=== PATIENT | female | born 1970 | race Caucasian/White ===

== ENCOUNTER → 2017-02-12 | Outpatient (CLI) | payer BC, SELFPAY | PROVIDERS: Visit Provider Family Medicine | DX: N64.4 Mastodynia (principal) | CPT/HCPCS: 77067; G0202 ==

== ENCOUNTER → 2017-03-01 14:27 | Outpatient (CLI) | payer BC, SELFPAY ==
--- NOTE | 2017-03-01 14:43 | MM_ITS ---
MM Dig SC mamm unilat LT CAD COMPARISON: 02/12/2017 INDICATION: Follow-up abnormal mammogram ORDERING PHYSICIAN: Kathy Sánchez MD PATIENT AGE: 46 years TECHNIQUE: Rolled cc views FINDINGS: Previous area of asymmetric density less apparent on the medial rolled cc view. This is to represent fibroglandular tissue not evident on the previously described additional images nor the orthogonal view IMPRESSION: Asymmetric density likely corresponds to asymmetric fibroglandular tissue BI-RADS Category: 3 Benign Finding Short Term Follow-up RECOMMENDED FOLLOW-UP: 6M - 6 MONTH FOLLOW-UP (A letter has been sent to the patient regarding results of the study.)
== END ==
PROVIDERS: PCP Family Medicine; Visit Provider Family Medicine
DX: R92.8 Other abnormal and inconclusive findings on diagnostic imaging of breast (principal)
CPT/HCPCS: 77067

== ENCOUNTER → 2020-05-23 16:07 | Outpatient (CLI) | payer BC, SELFPAY ==
[2020-05-23 17:09] LABS: Hemoglobin A1C 5.3 % (4.0-6.0)
== END ==
PROVIDERS: Visit Provider Nurse Practitioner
DX: R42 Dizziness and giddiness (principal); Z83.3 Family history of diabetes mellitus
CPT/HCPCS: 36415; 83036

== ENCOUNTER → 2020-06-01 08:36 | Outpatient (CLI) | payer BC, SELFPAY ==
--- NOTE | 2020-06-01 08:36 | MR_ITS ---
PROCEDURE: MR FOOT LT WO/W CON CLINICAL INDICATION: pain Bilateral plantar fascia pain COMPARISON: No exams were available for comparison TECHNIQUE: Routine multiplanar multi echo sequences are performed without and with gadolinium enhancement. FINDINGS: Bones: Nonspecific increased T2 signal involving the distal phalanx of the great toe. This had a similar appearance on the right side and may be artifactual in nature. There is no evidence of enhancement or soft tissue swelling. Ligaments: Unremarkable Tendons: Unremarkable Joints: Small amount fluid is present at the navicular cuneiform junction and between the mid and lateral cuneiform as well as the lateral cuneiform and cuboid. Small amount fluid also noted at the 1st 2nd 3rd and 4th metatarsophalangeal junction and between the head of the 1st metatarsal and sesamoids suggesting synovitis. Small amount fluid is also present at the talocalcaneal region posteriorly and at the tibial talar region anteriorly. Soft tissues: There is a mild amount of subcutaneous edema of the heel pad and superficial to the plantar fascia. No evidence of plantar fascia tear. IMPRESSION: 1. Synovitis suspected of the ankle and foot at the metatarsophalangeal junction, 1st metatarsal sesamoid region, and tarsal area as described above.. 2. Mild edema along the heel pad and superficial to the plantar fascia and may be seen with plantar fasciitis. No plantar fascia tear. 3. Nonspecific increased T2 signal of the distal phalanx of the great toe possibly artifactual in nature. Dictated by: Caesar Pa MD 06/05/2020 12:19 Caesar Pa MD in [place] 06/05/2020 12:19
--- NOTE | 2020-06-01 08:36 | MR_ITS ---
PROCEDURE: MR FOOT RT WO/W CON CLINICAL INDICATION: pain Pt c/o hx of bilateral plantar fasciitis x5yrs. Hx of multiple injections. No known trauma. Pt states both feet hurt, but if she had to state if one was worse than the other, her rt hurts more. COMPARISON: No exams were available for comparison TECHNIQUE: Routine multiplanar multi echo sequences are performed without and with gadolinium enhancement. FINDINGS: Bones: Increased T2 signal involves the distal phalanx of the great toe at the mid distal aspect. This does not appeared to show contrast enhancement. Has there been recent trauma to this area?. No fracture or dislocation. Ligaments: Unremarkable. Tendons: Slight increased T2 signal involves the peroneus longus at the distal calcaneal region with a small amount fluid in this area suggesting tendinitis. No tendon tears are identified. Joints: Minimal osteoarthritic changes involve the 1st metatarsophalangeal joint. Small amount fluid is present in the MTP joint of the 1st, 2nd, 3rd, 4th and 5th toes. Small amount fluid is also present between the distal aspect of the 1st metatarsal and sesamoid bones. Soft tissues: The plantar fascia appears intact. There is a small amount of edema both deep and superficial to the mid aspect of the plantar fascia as seen on the sagittal images as well as a small amount of edema along the heel pad. IMPRESSION: 1. Metatarsophalangeal synovitis digits 1 through 5 also with a small amount of fluid at the 1st metatarsal sesamoid region suggesting synovitis 2. No evidence of plantar fascia tear. Mild edema is present deep and superficial to the plantar fascia which may be seen with fasciitis. There is also mild edema of the heel pad suggesting underlying inflammatory changes. 3. Increased T2 signal of the distal phalanx of the great toe etiology indeterminate. This does not show contrast enhancement and could be related to bone marrow edema from contusion. Please correlate with clinical parameters Dictated by: Caesar Pa MD 06/05/2020 12:03 Caesar Pa MD in [place] 06/05/2020 12:03
== END ==
PROVIDERS: PCP Family Medicine; Visit Provider Podiatrist
DX: M72.2 Plantar fascial fibromatosis (principal); M79.671 Pain in right foot; M79.672 Pain in left foot
CPT/HCPCS: 73720; A9576

== ENCOUNTER → 2021-01-03 09:19 | Outpatient (POV) | payer BC, SELFPAY ==
[2021-01-03 09:47] VITALS: BP 116/73; PULSE 70; RESP 18; O2SAT 99; BMI 22.4
--- NOTE | 2021-01-05 15:02 | HMH.PMCON ---
Assessment and Plan (1) Degenerative joint disease of cervical spine Status: Chronic Category: Medical Code(s): M47.812 - Spondylosis without myelopathy or radiculopathy, cervical region (2) Cervical radiculopathy Status: Chronic Category: Medical Code(s): M54.12 - Radiculopathy, cervical region (3) Cervical spondylosis Status: Chronic Category: Medical Code(s): M47.812 - Spondylosis without myelopathy or radiculopathy, cervical region - Assessment and plan all Dx Assessment and Plan for all problems:: Patient does have imaging of her cervical spine. Per the MRI report patient does have cerebellar tonsillar ectopia, with incidental finding of partially empty sella, which could be result of idiopathic intracranial hypertension, consider correlation with funduscopic exam for papilledema . Patient also has facet arthropathy noted per her MRI report throughout her cervical spine. The MRI was discussed in detail with Dr. Prajapati. Dr. Prajapati would like to refer the patient to Dr. Buckley for a further work-up concerning the patient's worsening headaches and neck pain before proceeding with injective therapy. She does have a history of chiari malformation. We will see the patient back after her visit with Dr. Buckley. Patient has inquired about oral medication management. She has been advised we will not be able to prescribe her Percocet in the clinic. She can discuss this with her primary care provider. Patient has been instructed to contact the clinic with any concerns before the next appointment. Dr. Prajapati has reviewed this note and agrees with this plan of care. This note was dictated using voice recognition software and make contain errors or omissions. HPI - Data of Consult Patient: new to practice Consult date: 01/03/21 Requesting Physician: Winsome Alston APRN - Consult Narrative Reason for consult: Neck pain with frequent headaches History of present illness: Ms. Ochoa is a 50 year old female who presents today for consultation for chronic neck pain with frequent headaches. The patient was referred to us by Angelique Barrios PA-C. Patient reports that she has had many years of neck pain with radiation into her hand. She says that the pain is made worse with movement. Patient says her sister is a patient within our clinic, Charity Garcia. Patient says that she experiences similar symptoms as her sister with a history of chiari malformation. Patient reports to have been having headaches x2 years. She reports the neck pain to cause the headaches. She is also having pain to the sides of both ears. She says the pain does occasionally creep into bilateral shoulders. This has been ongoing to her shoulder since June. Patient has had an occipital nerve block in the past with little to no relief. She has occasional numbness in her cheeks as well. She also has occasional numbness and tingling in her hands. She says she is unable to lie flat in the bed without having significant pain. She does have to use a pillow rolled up for relief of her neck pain. She reports the headaches to generally be in the occipital region. Flexing head forward or backwards makes symptoms worse. She reports stiffness in the neck with limited range of motion as well. Patient has been treated with Percocet 10 tizanidine in the past. Patient did go back to her previous pain management provider for repeat injections of occipital nerve blocks though the first injections did not work. The insurance did deny the second round of injections. Patient is also prescribed meloxicam. CC: Winsome Alston APRN [facility] History I have reviewed the patient's past medical history: Yes Medical History: Reports:: Cancer, Supraventricular Tachycardia *Have you ever received a pneumonia vaccine?: No *Have you received a flu vaccine this season?: No Other Surgeries: Yes: , Hysterectomy-Total, Hysterectomy-Partial - *Social History Smoking Status: Never smoker Al
== END ==
PROVIDERS: Visit Provider Clinical Nurse Specialist Family Health
DX: M47.892 Other spondylosis, cervical region (principal); M54.12 Radiculopathy, cervical region
CPT/HCPCS: 99212; G0463

== ENCOUNTER → 2021-02-24 14:01 | Outpatient (CLI) | payer BC, SELFPAY ==
--- NOTE | 2021-02-24 14:01 | MR_ITS ---
PROCEDURE INFORMATION: Exam: MR Head Without Contrast Exam date and time: 02/24/2021 2:01 PM Age: 50 years old Clinical indication: Condition or disease; Other: Chiari i, headaches TECHNIQUE: Imaging protocol: MR of the head without contrast. COMPARISON: FINDINGS: Brain: Cerebellar tonsillar ectopia consistent with Chiari 1 malformation. No acute infarct identified on the diffusion-weighted imaging. No evidence of brain parenchymal edema or intracranial mass effect. No significant white matter disease for the patient's age. A few punctate foci of increased signal intensity in the frontal lobe subcortical white matter likely representing trace chronic small vessel ischemic change. Cerebral ventricles: No ventriculomegaly. Pituitary gland and sella: There is a partially empty sella turcica, usually an incidental finding. Bones/joints: The cervical spine is evaluated separately on a dedicated exam. Degenerative disc disease is noted at C3-C4. Paranasal sinuses: Normal as visualized. No acute sinusitis. Mastoid air cells: Normal as visualized. No mastoid effusion. Orbital cavity: Unremarkable. Soft tissues: Unremarkable. IMPRESSION: 1. No acute findings. 2. Cerebellar tonsillar ectopia consistent with Chiari 1 malformation.
--- NOTE | 2021-02-24 14:01 | MR_ITS ---
PROCEDURE INFORMATION: Exam: MR Cervical Spine Without Contrast Exam date and time: 02/24/2021 2:01 PM Age: 50 years old Clinical indication: Condition or disease; Other: Syrinx, chiari i TECHNIQUE: Imaging protocol: Multiplanar magnetic resonance images of the cervical spine without contrast. COMPARISON: No relevant prior studies available. FINDINGS: Vertebrae: Slight degenerative retrolisthesis of C5 on C6. No acute fracture seen. Spinal cord: Increased conspicuity of the central canal of the spinal cord seen from the level of lower C7 through T1-2 consistent with trace hydrosyringomyelia. Disc desiccation throughout. Disc height loss and spondylosis is moderate at C3-C4, C5-C6 and C6-C7. C2-C3: No stenoses. C3-C4: Posterior disc osteophyte complex, in particular central disc osteophyte measuring approximately 3-4 mm in AP dimension nearly abutting ventral cord. There is slight ventral cord flattening. No cord myelopathy. Central spinal canal stenosis is mild. Uncovertebral and facet arthropathy causing mild right neural foraminal stenosis. No significant left neural foraminal narrowing. C4-C5: Mild disc bulge does not contribute to central spinal canal stenosis. The neural foramina are patent. C5-C6: Slight retrolisthesis. Disc osteophyte complex nearly abuts ventral cervical cord. There is slight ventral cord flattening. No cord myelopathy. Uncovertebral and facet arthropathy, in particular left uncovertebral osteophyte probably causing [id number] left neural foraminal stenosis. No significant right neural foraminal narrowing. Some limitations assessing the neural foramina on the axial T2 weighted sequence due to motion artifact. C6-C7: Disc osteophyte complex does not contribute to significant central spinal canal stenosis. Uncovertebral and facet arthropathy causing [id number]-tmudpkyr right and mild left neural foraminal stenoses. C7-T1: Evlx-pc-[id number] facet arthropathy. No stenoses. Soft tissues: Unremarkable. Brain: Cerebellar tonsillar ectopia consistent with Chiari 1 malformation. Vertebral arteries: Expected flow voids in the vertebral arteries. IMPRESSION: 1. Trace hydrosyringomyelia of the cervicothoracic cord. 2. Degenerative changes with odyq-ga-vlproclo stenoses, as above.
== END ==
PROVIDERS: PCP Family Medicine; Visit Provider Specialist
DX: G43.709 Chronic migraine without aura, not intractable, without status migrainosus (principal); G93.5 Compression of brain; G95.0 Syringomyelia and syringobulbia
CPT/HCPCS: 70551; 72141; 76376

== ENCOUNTER → 2021-07-03 14:55 | Outpatient (CLI) | payer BC, SELFPAY ==
--- NOTE | 2021-07-03 15:05 | XR_ITS ---
FINAL REPORT CLINICAL HISTORY: pt. passed out last week hitting head c/o neck stiffness and back pain FINDINGS: CERVICAL SPINE COMPLETE WITH FLEXION AND EXTENSION 7 views were obtained. There is no acute fracture. Alignment is normal. There is straightening of the normal cervical curvature which could be due to positioning or muscle spasm. There are mild and moderate degenerative changes with osteophytes. There is no abnormal movement with flexion or extension. IMPRESSION: Mild and moderate degenerative changes. LUMBAR SPINE Three views were obtained. There is no acute fracture. There is dextroscoliosis. Alignment is normal. There are mild degenerative changes with osteophytes. IMPRESSION: Mild degenerative change with osteophytes. Reviewed, Interpreted and Dictated by Qamar Segura III, MD Transcribed by Grady Padron Authenticated by aQmar Segura III, MD on 07/03/2021 04:47:41 PM [facility]
== END ==
PROVIDERS: PCP Family Medicine; Visit Provider Specialist
DX: S06.0X9A Concussion with loss of consciousness of unspecified duration, initial encounter (principal); M54.2 Cervicalgia; T14.90XA Injury, unspecified, initial encounter; W19.XXXA Unspecified fall, initial encounter
CPT/HCPCS: 72084

== ENCOUNTER → 2021-07-10 13:40 | Outpatient (CLI) | payer BC, SELFPAY ==
--- NOTE | 2021-07-10 13:40 | CT_ITS ---
FINAL REPORT CLINICAL HISTORY: Head concussion, synocpe, fell and hit left side head. FINDINGS: Axial images of the head were obtained without contrast. Coronal reformatted images were also obtained.This study was performed with techniques to keep radiation doses as low as reasonably achievable (ALARA). Individualized dose reduction techniques using automated exposure control or adjustment of mA and/or kV according to the patient's size were employed. There is no evidence of intracranial hemorrhage or mass. The ventricular size is within normal limits. There is no evidence of shift of the midline structures. No abnormal extra axial fluid collection is identified. No skull abnormality is seen on the bone window images. IMPRESSION: No acute intracranial abnormality. Reviewed, Interpreted and Dictated by Qamar Segura III, MD Transcribed by Kathy Sandoval Authenticated by Qamar Segura III, MD on 07/10/2021 03:30:22 PM [facility]
== END ==
PROVIDERS: PCP Family Medicine; Visit Provider Specialist
DX: S06.0X9A Concussion with loss of consciousness of unspecified duration, initial encounter (principal)
CPT/HCPCS: 70450

== ENCOUNTER → 2021-07-26 08:35 | Outpatient (CLI) | payer BC, SELFPAY ==
[2021-07-26 09:36] LABS: Chloride 101 mmol/L (98-107); Potassium 4.4 mmoL/L (3.5-5.1); Sodium 139 mmol/L (136-145)
[2021-07-26 09:39] LABS: Alanine Aminotransferase 23 U/L (12-78); Albumin Level 5.1 g/dl (3.5-5.0); Albumin/Globulin Ratio 1.9 (1.1-1.8); Alkaline Phosphatase 72 U/L (38-126); Anion Gap 11.4 mEq/L (5-15); Aspartate Amino Transferase 28 U/L (14-36); Bilirubin,Total 0.8 mg/dl (0.2-1.3); Blood Urea Nitrogen 11 mg/dl (7-17); Carbon Dioxide 31 mmol/L (22.0-30.0); Estimated Glomerular Filt Rate 130 ml/min (>60); GFR (African American) 157 ML/MIN (>60); Globulin 2.7 g/dL (1.3-3.2); Total Protein,Serum 7.8 g/dl (6.3-8.2)
[2021-07-26 09:40] LABS: Calcium 10.1 mg/dl (8.4-10.2); Glucose 99 mg/dl (74-100)
== END ==
PROVIDERS: PCP Family Medicine; Visit Provider Specialist
DX: G43.709 Chronic migraine without aura, not intractable, without status migrainosus (principal)
CPT/HCPCS: 36415; 80053

== ENCOUNTER → 2021-09-08 10:29 | Outpatient (CLI) | payer BC, SELFPAY ==
[2021-09-08 11:36] LABS: Basophils # 0.1 K/mm3 (0-0.2); Basophils % 2.5 % (0.1-2.0); Eosinophils # 0.2 K/mm3 (0.0-0.4); Hematocrit 42.7 % (37.0-47.0); Hemoglobin 13.4 g/dL (12.2-16.2); Lymphocytes # 1.5 K/mm3 (0.7-4.5); Lymphocytes % 30.1 % (10-50); Mean Corpuscular HGB Conc 31.4 g/dL (31.8-35.4); Mean Corpuscular Hemoglobin 30.7 pg (27.0-31.2); Mean Corpuscular Volume 97.6 fl (81-99); Mean Platelet Volume 7.5 fl (7.4-10.4); Monocytes # 0.4 K/mm3 (0.1-1.0); Monocytes % 7.5 % (1.7-9.3); Neutrophils # 2.8 K/mm3 (1.8-7.8); Neutrophils % 56.9 % (37.0-80.0); Platelet Count 272 K/mm3 (142-424); Red Blood Count 4.37 M/mm3 (4.20-5.40); Red Cell Distribution Width 13.1 % (11.5-17.5); White Blood Count 4.9 K/mm3 (4.8-10.8)
[2021-09-08 13:02] LABS: Activated Partial Thrombo Time 31.4 seconds (22.8-30.6); INR 0.97 (0.9-1.1)
== END ==
PROVIDERS: PCP Family Medicine; Visit Provider Specialist
DX: M47.812 Spondylosis without myelopathy or radiculopathy, cervical region (principal); M54.12 Radiculopathy, cervical region; M65.9 Synovitis and tenosynovitis, unspecified; R42 Dizziness and giddiness
CPT/HCPCS: 36415; 85025; 85610; 85730

== ENCOUNTER → 2022-02-28 12:57 | Outpatient (POV) | payer BC, SELFPAY ==
[2022-02-28 13:31] VITALS: BP 135/93; PULSE 102; RESP 19; O2SAT 98; BMI 21.2
--- NOTE | 2022-02-28 16:49 | EXP.PAIN.OV ---
HPI Data of Consult Patient: new to practice Consult date: 02/28/22 Requesting Physician: Deidre Vega APRN Primary Care Provider: Kathy Sánchez MD Consult Narrative Reason for consult: Neck/upper back pain, headache History of present illness: Ms. Ochoa is a 51 year old female who presents today as a new patient. She is a referral from Dr. Buckley's office. Today the patient rates her pain a 7 out of 10. Patient states her pain is all in her neck and upper back with frequent headaches symptoms. Patient states that approximately a year and a half ago she was seen by our office for the same issues and we did send her for a consult for neurology. Patient states that she has been to Dr. Buckley who prescribed her a neuro suppressant medication and muscle relaxer. Patient states she has been recently to see Dr. Ortega in [place] who was recommending physical therapy and pain management before possibly doing a decompression surgery. Patient states she would like a noninvasive measure if possible. Patient states she previously did get injections in her neck and head from Dr. Vega's office in [place]. Patient states this did provide some improvement of her symptoms however it was supposed to be a series of 3 different injections however insurance would not cover the second and third shots. Patient denies any history of going to physical therapy for her neck related pain. Patient does state this is a constant throbbing sensation that is worse with increased activity or range of motion. Patient states she is unable to tolerate bending her neck due to the pain. Patient states she was on previous narcotics for her pain symptoms however she stopped taking them this fall when she got COVID and was put on antibiotics for 3 weeks. Patient does states she has some radicular symptoms into her hands as well as her head. Patient states she is unable to tolerate activities of daily living such as minimal cooking and cleaning such as mopping due to her worsening symptoms. Patient has been to other neurologist such as Dr. Alize Crockett in [place] with similar complaints. Patient has tried tizanidine and cyclobenzaprine in the past. Patient states she does continue to use ice for additional relief although temporary. Patient denies any cardiac or kidney issues. Patient states she feels like she has no quality of life and is interested in any additional improvements we can provide. Her Sincere is [phone]. Its been reviewed and appropriate. CC: Deidre Vega APRN [facility] Disclaimer: The information contained in this section may have been updated after the patient was seen, as this information can be updated by other users. Medical History (Updated 02/28/22 @ 17:04 by Deidre Vega APRN) Afib Anxiety Cancer Depression Migraine SVT (supraventricular tachycardia) Surgical History (Updated 02/28/22 @ 13:35 by Lucina Tang, KARELY) H/O total hysterectomy Hx of section Social History (Updated 02/28/22 @ 13:36 by Lucina Tang, KARELY) Smoking Status: Never smoker alcohol intake: never substance use type: denies use current occupational status: unemployed Travel in the last 8 weeks: None household members: spouse housing: house Review of Systems Review of Systems Review of systems:: pertinent systems reviewed and negative unless documented below Review of systems (narrative): Review of Systems: General: No recent weight changes, no fever, no sleep disturbances Respiratory: No cough, no shortness of air, no recurring pulmonary infections Cardiovascular/peripheral vascular: No chest pain, no palpitations, no edema, no shortness of breath Gastrointestinal: No new onset incontinence, normal bowel movements reported Genitourinary: No new onset incontinence Musculoskeletal: Neck pain, headache Psychiatric: [Normal mood/affect] Neurological: [Denies weakness in extremities], [denies balance issues] Meds Home Medic
== END | disposition home or self-care (01) ==
PROVIDERS: PCP Family Medicine; Visit Provider Nurse Practitioner Family
DX: M50.123 Cervical disc disorder at C6-C7 level with radiculopathy (principal); M47.22 Other spondylosis with radiculopathy, cervical region; G89.4 Chronic pain syndrome; G93.5 Compression of brain; R51.9 Headache, unspecified
CPT/HCPCS: 99202; G0463

== ENCOUNTER 2022-03-06 11:31 | Day surgery (SDC) | payer BC, SELFPAY ==
[2022-03-06 11:43] VITALS: BP 147/88; PULSE 93; RESP 18; TEMP 36.8; O2SAT 100; BMI 21.2
[2022-03-06 11:44] VITALS: BP 142/76; PULSE 94; RESP 20; O2SAT 97
[2022-03-06 11:48] VITALS: BP 142/76; PULSE 94; RESP 20; O2SAT 97
[2022-03-06 12:00] VITALS: BP 147/93; PULSE 80; RESP 18; O2SAT 95
--- NOTE | 2022-03-06 12:00 | P.PCN_ITS ---
Procedure Date: 03/06/22 Time: 11:50 Anesthesiologist:: Jus Regan CRNA Complications:: None Pre-procedure Diagnosis:: Degenerative disc disease multilevel cervical spine. Cervical radiculopathy. Post-procedure Diagnosis:: Same. Indications for Procedure:: Very pleasant 51-year-old female comes our clinic today for cervical epidural steroid injection. Patient has posterior cervical neck pain as well as bilateral arm radicular symptoms at times. She rates her pain 7/10. Procedure Details:: Procedure:Cervical epidural steroid injection Informed consent was obtained and the risks and benefits of the procedure were explained to the patient. The patient was taken to the procedure room and noninvasive monitors placed, including noninvasive blood pressure cuff and pulse oximeter. The neck was prepped using Chloraprep as a cleansing solution. The C7- T1 interspace was viewed using fluroscopy. The skin and subcutaneous tissues were anesthetized using lidocaine 1.5% and a 25-gauge needle. After this an 18- gauge Touhy epidural needle was placed into the C7-T1 interspace under fluroscopy guidance and advanced using loss of resistance to air until the epidural space was encountered. After confirmation of needle placement in the e pidural space using contrast dye, a solution containing normal saline, 2 mL and Depo-Medrol 80 mg was incrementally injected into the cervical epidural space.~ The patient tolerated the procedure well with no complications. The patient was observed in the Pain Clinic and then discharged home neurologically intact. Plan and Disposition:: Patient was discharged without incident.
== END 2022-03-06 12:00 | disposition home or self-care (01) ==
PROVIDERS: PCP Family Medicine; Visit Provider Nurse Anesthetist, Certified Registered
DX: M50.13 Cervical disc disorder with radiculopathy, cervicothoracic region (principal)
CPT/HCPCS: 62321; J1040; Q9966

== ENCOUNTER → 2022-04-17 10:32 | Outpatient (POV) | payer BC, SELFPAY ==
[2022-04-17 10:46] VITALS: BP 143/78; PULSE 74; RESP 20; TEMP 37.1; O2SAT 98; BMI 21.6
--- NOTE | 2022-04-17 11:18 | A.OFFVIS_ITS ---
[facility] Pain Management SOAP Note Subjective:: This patient is a pleasant 51-year-old female that comes to clinic today for follow-up visit after having cervical epidural steroid injection. Patient describes minimal improvement terms of her cervical neck pain as well as bilateral shoulder and arm radicular symptoms. Patient's cervical MRI shows multilevel degenerative disc. Retrolisthesis C5-6, disc osteophyte complex nearly abuts the ventral cervical cord. Patient describes cervical neck pain as constant, dull, aching. Also bilateral arm radicular symptoms at times. She rates her pain 7/10. Objective:: Patient is awake alert [employer] x3. In no acute distress. Flexion-extension cervical spine guarded secondary to pain. Deep tendon reflexes upper and lower extremities normal. Motor strength upper and lower extremities normal. There is no gross sensory deficit. Gait is normal. Assessment:: Degenerative disc disease cervical spine multilevels. Cervical radiculopathy. Cervical disc bulge. Plan:: I recommend the patient have evaluation with spine surgery. I will set her up for consultation with Dr. Mike?Anika. [facility] Disclaimer: The information contained in this section may have been updated after the patient was seen, as this information can be updated by other users. Medical History Afib Anxiety Cancer Depression Migraine SVT (supraventricular tachycardia) Surgical History H/O total hysterectomy Hx of section Family History (Updated 03/06/22 @ 11:45 by Alize Rose RN) Other No significant family history Social History Smoking Status: Never smoker alcohol intake: never substance use type: denies use current occupational status: other Travel in the last 8 weeks: None household members: spouse housing: house
== END ==
PROVIDERS: PCP Family Medicine; Visit Provider Nurse Anesthetist, Certified Registered
DX: M50.10 Cervical disc disorder with radiculopathy, unspecified cervical region (principal)
CPT/HCPCS: 99212; G0463

== ENCOUNTER → 2022-07-27 11:55 | Outpatient (CLI) | payer BC, SELFPAY ==
--- NOTE | 2022-07-27 12:00 | XR_ITS ---
FINAL REPORT CLINICAL HISTORY: lt foot pain COMPARISON: None FINDINGS: LEFT FOOT Three views of the left foot demonstrate no acute fracture or dislocation. The visualized joint spaces are normally aligned. The soft tissues are unremarkable. IMPRESSION: No acute bony abnormality. Reviewed, Interpreted and Dictated by Neto Chávez MD Transcribed by Nadiya Smith Authenticated and [facility]
--- NOTE | 2022-07-27 12:00 | XR_ITS ---
FINAL REPORT CLINICAL HISTORY: rt foot pain COMPARISON: None FINDINGS: RIGHT FOOT 3 views of the right foot were obtained. There is no acute fracture or dislocation. Visualized joint spaces are normally aligned. Soft tissues are unremarkable. IMPRESSION: No acute bony abnormality. Reviewed, Interpreted and Dictated by Neto Chávez MD Transcribed by Nadiya Smith Authenticated and [facility]
== END ==
PROVIDERS: PCP Family Medicine; Visit Provider Orthopaedic Surgery
DX: M79.671 Pain in right foot (principal); M79.672 Pain in left foot; M72.2 Plantar fascial fibromatosis
CPT/HCPCS: 73630

== ENCOUNTER → 2022-08-29 15:13 | Outpatient (CLI) | payer BC, SELFPAY ==
--- NOTE | 2022-08-29 15:14 | MR_ITS ---
PROCEDURE INFORMATION: Exam: MR Left Lower Extremity Joint Without Contrast; Ankle Exam date and time: 08/29/2022 4:02 PM Age: 51 years old Clinical indication: Pain; Ankle; Bilateral; Additional info: Lt ankle pain. X 8 years. TECHNIQUE: Imaging protocol: Magnetic resonance imaging of the left lower extremity without contrast. Exam focused on the ankle. COMPARISON: MR FOOT LT WO/W CON 06/01/2020 9:04 AM FINDINGS: Bones/joints: Tibiotalar and subtalar joint effusions are identified. Additional effusions are noted involving the midfoot. Fluid is seen within the spring ligament recess. No visualized acute marrow edema. No dislocation ankle. Evaluation of the foot is limited. First MTP joint effusion. Small amount of fluid or effusion also identified dorsal to the 2nd through 4th MTP joints. A few tiny hypodense nonspecific sclerotic lesions are identified within the navicular bone. LIGAMENTS: Distal tibiofibular syndesmosis: No visualized tear. Anterior talofibular ligament: Fluid surrounds the anterior talofibular ligament. Ligament sprain cannot be excluded. Posterior talofibular ligament: Heterogeneous signal intensity of the posterior talofibular ligament, without full-thickness tear. Calcaneofibular ligament: Evaluation of the calcaneofibular ligament is technically limited. Deltoid ligament complex: Increased signal intensity is identified involving the deltoid ligament. Ligament sprain or partial tear is considered, although this is a chronic finding compared to the previous MRI. TENDONS: Flexor tendons of foot: Unremarkable as visualized. Tibialis posterior tendon: See Peroneal tendons finding. Peroneal tendons: Minimal tenosynovitis of the peroneal tendons. Minimal tenosynovitis of the posterior tibialis tendon. Extensor tendons of foot: Unremarkable as visualized. Tibialis anterior tendon: Unremarkable as visualized. Achilles tendon: Unremarkable as visualized. Tarsal canal (Sinus tarsi): Mild edema fluid within the sinus tarsi. Soft tissues: Heel pad edema is identified. Minimal fluid within the retrocalcaneal bursa. Plantar fascia: Thickening and heterogeneous signal intensity identified of the plantar fascia, with mild adjacent edema. Differential considerations include plantar fasciitis and plantar fibromatosis. There is a progression of findings involving the plantar fascia compared to the previous MRI. IMPRESSION: 1. Thickening and heterogeneous signal intensity identified of the plantar fascia, with mild adjacent edema. Differential considerations include plantar fasciitis and plantar fibromatosis. There is a progression of findings involving the plantar fascia compared to the previous MRI. 2. Joint effusions. 3. Heel pad edema. 4. Minimal tenosynovitis of the peroneal tendons. Minimal tenosynovitis of the posterior tibialis tendon. 5. Increased signal intensity is identified involving the deltoid ligament. Ligament sprain or partial tear is considered, although this is a chronic finding compared to the previous MRI. 6. Additional findings described above.
== END ==
PROVIDERS: PCP Family Medicine; Visit Provider Orthopaedic Surgery
DX: M25.572 Pain in left ankle and joints of left foot (principal); M72.2 Plantar fascial fibromatosis
CPT/HCPCS: 73721

== ENCOUNTER → 2022-09-26 08:40 | Outpatient (POV) | payer BC, SELFPAY ==
--- NOTE | 2022-09-26 08:59 | EXP.PAIN.SOA ---
[facility] Pain Management SOAP Note Subjective:: Patient is a pleasant 52-year-old female who presents today for follow-up. 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 Today she rates her pain an 8 out of 10. Patient denies any new trauma or injury. Patient states she continues to have debilitating pain in her neck with radiating symptoms and headaches. She states the pain makes it difficult for bending, twisting or lifting. Patient feels like she does not have a life due to her pain. Patient states that she is unable to do activities of living and has no quality. Patient denies any change to location or type of pain she experiences. Patient has tried 1 cervical epidural that did not provide significant relief from our office. She was sent to [facility] who did do a occipital nerve block however she states she did not really have improvement with it. Patient states that they were recommending a series of 3 however her insurance denied her second injection. She was then sent to [facility] but was unhappy regarding the care and went on to Dr. Ortega's office. She states that the nurse practitioner mentioned a decompression surgery however she was not interested in this. She states he did not see any immediate issues that required surgical intervention. Patient does see Dr. Buckley who has her on a neuro suppressant medication. She is interested in any additional help we may be able to provide. Patient is currently managed with tizanidine 4 mg 3 times a day. She states that she does typically take a tab and a half in the morning and a tab and a half at night and it does help some. Patient does state that she is scheduled for upcoming foot surgery with Dr. Neves. Patient has tried [id number] medications such as Tylenol and ibuprofen along with heat and ice and topicals. She was prescribed compounding cream from our office in the past however she does not remember if it was ever gotten. She states that she has also tried meloxicam in the past with no additional relief. Her Sincere is [id number]. Its been reviewed and appropriate. Review of Systems: General: No recent weight changes, no fever, no sleep disturbances Respiratory: No cough, no shortness of air, no recurring pulmonary infections Cardiovascular/peripheral vascular: No chest pain, no palpitations, no edema, no shortness of breath Gastrointestinal: No new onset incontinence, normal bowel movements reported Genitourinary: No new onset incontinence Musculoskeletal: Neck pain, arm pain, headaches Psychiatric: [Normal mood/affect] Neurological: [Denies weakness in extremities], [denies balance issues] Objective:: Physical Exam: General: Alert and oriented x3, no acute distress, pleasant and cooperative Lungs: Respirations even and unlabored, symmetrical chest expansion Eyes: PERRL Musculoskeletal: Flexion and extension of cervical [spine] somewhat guarded secondary to pain, [antalgic gait noted] positive Kemps test Neurological: Speech clear, no gross sensory deficit [facility] 04/26/2022 MRI cervical spine without Findings: Alignment is normal. Vertebral body height is preserved. Cerebellar tonsils are low-lying. There is mild prominence to the central canal to the spinal cord at C7-T1. Very small syrinx not excluded. Bone marrow signal intensity is normal. Paraspinal soft tissues are within normal limits. C2-C3: There is no focal disc herniation, central stenosis or neuroforaminal narrowing. C3-4: Annular disc bulge with degenerative endplate changes and facet osteoarthropathy. Mild central canal stenosis. No foraminal narrowing. C4-C5: There is no focal disc herniation central canal stenosis or neural foraminal narrowing. C5-C6: Annular disc bulge with degenerative endplate changes and facet osteoarthropathy. Mild
[2022-09-26 09:56] VITALS: BP 129/88; PULSE 99; RESP 18; O2SAT 100; BMI 21.4
== END | disposition home or self-care (01) ==
PROVIDERS: Visit Provider Nurse Practitioner Family
DX: M50.10 Cervical disc disorder with radiculopathy, unspecified cervical region (principal); M48.02 Spinal stenosis, cervical region; M47.22 Other spondylosis with radiculopathy, cervical region
CPT/HCPCS: 99212; G0463

== ENCOUNTER → 2022-10-08 09:04 | Outpatient (CLI) | payer BC, SELFPAY ==
--- NOTE | 2022-10-08 09:14 | ECG_ITS ---
APPROVED REPORT Exam: Resting ECG HR:80 bpm ECG Measurements Heart Rate 80 AXES WI 153 P 76 QRSd 100 QRS 100 QT 348 T 56 QTc 383 Conclusion SINUS RHYTHM BORDERLINE RIGHT AXIS DEVIATION [QRS AXIS > 90] INCOMPLETE RIGHT BUNDLE BRANCH BLOCK [90+ ms QRS DURATION, TERMINAL R IN V1/V2, 40+ ms S IN I/aVL/V4/V5/V6] BORDERLINE ECG UNCONFIRMED REPORT Electronically signed by : Farooq Patricia MD 10/08/2022 13:57:53
--- NOTE | 2022-10-08 09:34 | XR_ITS ---
FINAL REPORT CLINICAL HISTORY: cough, pre op sx on left foot FINDINGS: 2 views of the chest were obtained . The heart is normal in size. Patient is status post median sternotomy. The mediastinum is within normal limits. Left base opacity may represent atelectasis or pneumonia. There is no pneumothorax. Osseous structures demonstrate postoperative changes of the left shoulder. IMPRESSION: Left base opacity which may represent atelectasis or pneumonia. Reviewed, Interpreted and Dictated by Qamar Segura III, MD Transcribed by Toma Garcia Authenticated and [facility]
[2022-10-08 10:01] LABS: Basophils # 0.1 K/mm3 (0-0.2); Basophils % 1.1 % (0.1-2.0); Eosinophils # 0.2 K/mm3 (0.0-0.4); Eosinophils % 3.2 % (0.1-12.0); Hematocrit 44.6 % (37.0-47.0); Hemoglobin 14.4 g/dL (12.2-16.2); Lymphocytes # 1.9 K/mm3 (0.7-4.5); Lymphocytes % 37.9 % (10-50); Mean Corpuscular HGB Conc 32.3 g/dL (31.8-35.4); Mean Corpuscular Hemoglobin 29.2 pg (27.0-31.2); Mean Corpuscular Volume 90.6 fl (81-99); Mean Platelet Volume 7.8 fl (7.4-10.4); Monocytes # 0.3 K/mm3 (0.1-1.0); Monocytes % 6.4 % (1.7-9.3); Neutrophils # 2.6 K/mm3 (1.8-7.8); Neutrophils % 51.4 % (37.0-80.0); Platelet Count 256 K/mm3 (142-424); Red Blood Count 4.92 M/mm3 (4.20-5.40); Red Cell Distribution Width 12.9 % (11.5-17.5)
[2022-10-08 10:33] LABS: Alanine Aminotransferase 19 U/L (12-78); Albumin/Globulin Ratio 1.6 (1.1-1.8); Alkaline Phosphatase 99 U/L (38-126); Anion Gap 17.4 mEq/L (5-15); Aspartate Amino Transferase 28 U/L (14-36); Bilirubin,Total 0.4 mg/dl (0.2-1.3); Blood Urea Nitrogen 14 mg/dl (7-17); Carbon Dioxide 27 mmol/L (22.0-30.0); Chloride 103 mmol/L (98-107); Estimated Glomerular Filt Rate 104 ml/min (>60); GFR (African American) 126 ML/MIN (>60); Globulin 3.2 g/dL (1.3-3.2); Glucose 91 mg/dl (74-100); Potassium 4.4 mmoL/L (3.5-5.1); Sodium 143 mmol/L (136-145); Total Protein,Serum 8.2 g/dl (6.3-8.2)
== END ==
PROVIDERS: PCP Family Medicine; Visit Provider Orthopaedic Surgery
DX: Z01.818 Encounter for other preprocedural examination (principal); M72.2 Plantar fascial fibromatosis
CPT/HCPCS: 36415; 71046; 80053; 85025; 93005

== ENCOUNTER 2022-10-12 06:02 | Day surgery (SDC) | payer BC, SELFPAY ==
[2022-10-09 08:29] VITALS: BMI 23.0
[2022-10-12] VITALS (12 sets, daily range): BP systolic 110–138; BP diastolic 72–91; PULSE 81–108; RESP 14–20; TEMP 36.3–43; O2SAT 97–100
--- NOTE | 2022-10-12 06:53 | P.PNANES_ITS ---
[facility] Disclaimer: The information contained in this section may have been updated after the patient was seen, as this information can be updated by other users. Medical History Afib Anxiety Cancer Depression Migraine SVT (supraventricular tachycardia) Surgical History H/O total hysterectomy History of appendectomy History of breast augmentation History of endometrial ablation Hx of section Family History Other Family history of Alzheimer's disease Family history of diabetes mellitus type II Social History Smoking Status: Never smoker alcohol intake: never substance use type: denies use current occupational status: other Travel in the last 8 weeks: None household members: spouse housing: house [facility] Anesthesia Checklist Patient Identification Patient Identification: Arm Band and Family Structural Data Admitted From: Home Planned Operative Procedure/s: Left open partial plantar facieotomy. Verified Documents: Surgical Consent NPO Status Verified Time NPO: 00:00 Additional verifications Patient : No Anesthesia Reactions: No Hx Blood Transfusions: No Blood Transfusion Reaction: No Cephalosporin Allergy: No Previous Colonoscopy: No Airway Assessment Mallampati Score:: Class II C-Spine Mobility Assessed: Yes TMJ Mobility Assessed: Yes Dentition: Good Dentition Neurological Assessment Level of Consciousness: Awake, Alert, Appropriate and Follows Commands Hx Seizures: No Numbness or tingling in extremities: No Anesthesia Plan Anesthesia Risk discussed: Yes ASA Class: II Anesthesia Type: General w/block Preoperative Comments Pre-Operative Comments: History of cardiac ablation for V-Tach, with no problems since ablation.
--- NOTE | 2022-10-12 08:40 | P.PNANES_ITS ---
[facility] Anesthesia Record Part I Anesthesia Record I Intake, IV Amount: 900 Hydration: Adequate Estimated blood loss (mL): 0 Urine output (mL): 0 Blood Products used (#): none Blood Pressure: 125/73 SaO2: 98 Pulse Rate: 108 Airway Patency: Patent Respiratory Rate: 20 Temperature: 97.5 F Patient is:: Drowsy and Stable
--- NOTE | 2022-10-12 08:54 | EXP.OP.NOTE ---
Date of procedure: 10/12/22 Pre-op Diagnosis:: left plantar fasciitis Post-op Diagnosis:: same Procedure performed:: 24097: Left open partial plantar fasciectomy Surgeon:: Golden Neves JR, MD Anesthesia: MAC and regional Estimated blood loss (mL): 5 Clinical Note:: 52-year-old female with 7 to 8-year history of left plantar heel pain. MRI was consistent with Planter fasciitis. She had undergone extensive conservative measures including injections, therapy, immobilization. She was interested in more durable intervention. After discussion of risk, benefits, alternatives, she wished to proceed with left open partial plantar fasciectomy. We discussed the risk and benefits of surgery. Risks included but were not limited to pain, bleeding, infection, damage to adjacent structures, need for further surgery, wound healing complications, loss of limb, . Patient expressed verbal consent and written consent was obtained for the above procedure. Operative findings:: Plantar fascial specimen appeared thickened Operative note:: Patient was identified in preoperative holding. Operative site was marked in indelible ink. History, physical, consent were reviewed and updated. Patient was surrendered to the anesthesia team, taken to the operative suite, placed supine on a well-padded operative table. Ipsilateral hip bump was placed as was a nonsterile thigh tourniquet. Anesthesia was induced. The operative extremity was prepped and draped in the usual sterile fashion. The operative team donned sterile gowns and gloves and a timeout was called. All in attendance agreed regarding the patient's identity, procedure, operative site. Weight-based dose of antibiotics was given prior to incision. I made a longitudinal incision approximately 2 to 3 cm longitudinally overlying the plantar fascial origin, dissected through skin and subcutaneous tissue, incised the superficial fascia over the abductor houses. I followed this distally, identified the confluence at the plantar fascia. I freed up the plantar fascia dorsally and plantarly, incised an approximately 1.5 x 1.5 cm specimen from the medial band, sent this for pathology. I copiously irrigated the wound and closed in anatomic layers. Sterile dressings applied followed by short leg splint. Counts were correct x2. There were no apparent complications. I was present and scrubbed for the entire case. Tourniquet time (min): 15 Condition: stable Disposition: PACU Specimens:: Plantar fascia x1 Complications:: None apparent
--- NOTE | 2022-10-12 12:03 | EXP.ANES.II ---
[facility] Anesthesia Record Part II Anesthesia Record Part II Discharge Time: 09:08 Destination: Surgical Day Care (OP Surgery) PACU nurse assessment reviewed?: Yes Patient Condition:: Good Anesthesia Complications:: None Swallowing reflex intact?: Yes Airway Patency: Patent Cyanosis?: No Blood Pressure: 113/72 SaO2: 98 Respiratory Rate: 14 Pulse Rate: 96 Temperature: 97.4 F Mental Status: Alert & Oriented Pain level:: 0 Nausea and/or vomitting:: None Intake, IV Amount: 0 Hydration: Adequate
== END 2022-10-12 10:12 | disposition home or self-care (01) ==
PROVIDERS: PCP Family Medicine; Visit Provider Orthopaedic Surgery
PROC: (CPT 28060; principal; 2022-10-12 07:30)
DX: M72.2 Plantar fascial fibromatosis (principal)
CPT/HCPCS: 28060; 96374; J2405

== ENCOUNTER 2024-07-06 11:27 | Outpatient (CLI) | payer BC, SELFPAY ==
--- OUTSIDE RECORDS SUMMARY | 2024-07-06 11:29 | XMS_ITS | Data Portability ---
Author Organization [facility] [place] & DAVIDA Philip ADMIN Address [address] [place] [address] Care Team Providers Care Chicken Vaccinator Name Role Phone MILADY VERAS Primary Care Provider [phone] Assessment Encounter Date Assessment Date Assessment LastModified by Organization Details LastModified Time 01/13/2024 01/13/2024 Ms. Ochoa was referred by Dr. Veras for management of chronic neck and low back pain. The patient was diagnosed with Chiari malformation and mentions that her sister recently due to the same condition. The patient has diabetes, managed with oral medications. She denies history of infection or anti-coagulant use. wilbur Not available 01/14/2024 08:35:22 Plan of Treatment Reminders Order Date Submit Date Provider Last Modified By Organization Details Last Modified Time Details Appointments None recorded. Lab urinalysis, dipstick 2023 024 [facility], [address], [place], [address], Ph [phone] 4 08:50:37 Referral None recorded. Procedures chemodenerv ation of muscle(s); muscle(s) innervated by facial, trigeminal, cervical spinal and accessory nerves, bilateral (PROC) - 46783, Botox for migraines - 155 units 2023 025 [email or web address] Ethan Parson MD, [address], [address], [place], [address], 5 13:59:15 injection, trigger point (PROC) - 30970, 34271, TPI bilateral cervico-occ ipital region 2023 025 [email or web address] MD, [address] , [facility] [address], [place], [address], 5 15:53:04 nerve conduction study/EMG, lower extremity (PROC) 2022 023 [facility] Not available 3 13:00:36 Surgeries None recorded. Imaging None recorded. Medication Orders Bactrim DS 800 mg-160 mg tablet 2023 024 [facility] - [facility], [address] [place] [address], [place], [address], 4 08:50:41 Pyridium 200 mg tablet 2023 024 [facility], [address] [place] [address], [place], [address], 4 08:50:43 Patient TargetsNo targets recorded. Patient Instructions Encounter Date Encounter Id Patient Instructions Last Modified By Organization Details Last Modified Time 01/13/2024 [id number] I have discussed in great detail our potential treatment options which would include a rehabilitative approach to care. This program would include medication management, Physical Therapy, consideration for interventional procedures as appropriate, and lifestyle modification (diet, weight loss, exercise, smoking/tobacco cessation, holistic approach including meditation and yoga). The patient understands and agrees prior to proceeding with this plan. _ __ __ __ __ __ __ __ __ __ __ __ __ __ __ __ __ __ __ __ __ __ __ __ __ __ __ __ _ RECORDS REVIEW: As per clinic policy, we will have the patient sign a release to obtain previous imaging and clinical notes. - PROCEDURE: I counseled the patient extensively and informed of the risks of the procedure, including the risk of paralysis, nerve damage, respiratory arrest, arrhythmias, stroke, weakness, and infection, which although very low, could result in or disability. The patient acknowledged to me that they understand and accept these risks. RN EDUCATION Extensive coordination of care provided by RN to educate patient on upcoming procedure and to coordinate obtaining extensive incoming medical records. _ __ __ __ __ __ __ __ __ __ __ __ __ __ __ __ __ __ __ __ __ __ __ __ __ __ __ __ _ PSYCH: Pain affecting Neuro-psych behavior was discussed. Discussed about pain psychological counseling as a part of the multimodal approach to pain treatment. _ __ __ __ __ __ __ __ __ __ __ __ __ __ __ __ __ __ __ __ __ __ __ __ __ __ __ __ _ REHABILITATION: Discussed with the patient the importance of diet, daily physical activity and PT. Discussed with the patient the need to be scheduled for physical therapy since physical therapy will prolong the benefits of the procedure and interventions. _ __ __ __ __ __ __ __ __ __ __ __ __ __ __ __ __ __ __ __ __ __ __ __ __ __ __ __ _ LATA: [id number] I have reviewed patient's LATA report prior to prescribing Schedule II, III, and IV medications that require review by law. wilbur Not available 01/14/2024 08:41:03 Reason for Referral None Reported. Results Created Date Observation Date Name Description Value Unit Range Abnormal Flag Note LastModifiedBy Organization Detail LastModifiedTime 08/12/19 24 08/12/2023 urina lysis , dipst ick Leukocytes (reference range) negati ve Not Available [facility] [address], [place], [address], Ph [phone] 08/12/2023 08:31:00 08/12/19 24 08/12/2023 urina lysis , dipst ick Nitrite (reference range:) negati ve Not Available [facility] [address] [facility] [address], [place], [address], Ph [phone] 08/12/2023 08:31:00 08/12/19 24 08/12/2023 urina lysis , dipst ick Urobilinogen (reference range) 0.[address] [facility] [address] [facility] [address], [place], [address], Ph [phone] 08/12/2023 08:31:00 08/12/19 24 08/12/2023 urina lysis , dipst ick Protein (reference range) negati ve Not Available [facility] [address] [facility] [address], [place], [address], Ph [phone] 08/12/2023 08:31:00 08/12/19 24 08/12/2023 urina lysis , dipst ick pH (reference range 5-8.5) 6.0 Not Available [facility] [address] [facility] [address], [place], [address], Ph [phone] 08/12/2023 08:31:00 08/12/19 24 08/12/2023 urina lysis , dipst ick Blood (reference range:) negati ve Not Available [facility] [address] [facility] [address], [place], [address], Ph [phone] 08/12/2023 08:31:00 08/12/19 24 08/12/2023 urina lysis , dipst ick Specific [place] (reference range) 1.[address] [facility] [address] [facility] [address], [place], [address], Ph [phone] 08/12/2023 08:31:00 08/12/19 24 08/12/2023 urina lysis , dipst ick Ketone (reference range) negati ve Not Available [facility] [address] [facility] [address], [place], [address], Ph [phone] 08/12/2023 08:31:00 08/12/19 24 08/12/2023 urina lysis , dipst ick Bilirubin (reference range) negati ve Not Available [facility] [address] [facility] [address], [place], [address], Ph [phone] 08/12/2023 08:31:00 08/12/19 24 08/12/2023 urina lysis , dipst ick Glucose (reference range) negati ve Not Available [facility] [address] [facility] [address], [place], [address], Ph [phone] 08/12/2023 08:31:00 08/12/19 24 08/12/2023 urina lysis , dipst ick Color (reference range: yellow-brown ) Pale Yellow Not Available [facility] [address] [facility] [address], [place], [address], Ph [phone] 08/12/2023 08:31:00 Result Notes None recorded. Problems Name Problem SNOMED Code Status Onset Date Resolution Date Notes Provider Name and Address Organization Details Recorded Time Chiari malformati on 267628240 Active 2023 Mary Alice Mack null, [place] - [facility] - [place] & [place] 4 10:20:08 Cervico-oc cipital neuralgia 33762522 Active 2023 Mary Alice Mack null, [place] - [facility] [place] 4 10:20:13 Cervical spondylosi s 255689392 Active 2023 Mary Alice Mack null, [place] - [facility] [place] 4 10:20:40 Myofascial pain 133699032 Active 2023 Mary Alice Mack null, [place] - [facility] [place] 4 10:22:29 Chronic migraine without aura 2385668650535 05 Active 2023 KATHARINA Bartlett [facility] & [place] 4 08:26:54 Low back pain 943541470 Active 2023 Mary Alice weeks, KATHARINA Jo [facility] & [place] 4 08:27:24 Paresthesi a of lower extremity 501974003 Active 2022 Alize Crockett DO [address], [place], [address] , [place]ATHARINA - TERESANT [facility] & [place] 3 11:40:38 Problem Notes None recorded. Procedures Surgical History Date Name Laterality Status Provider Name and Address Organization Details Recorded Time 5 Botox Migraine completed Mary Alice HIGUERA [facility] & [place] 03/20/2024 14:00:53 4 Injection Only completed Mary Alice Jo [facility] & [place] 01/31/2024 12:19:11 3 EMG/ Nerve Conduction Study completed DO [address], [place], [address], KATHARINA - TERESANT [facility] & [place] 08/16/2022 11:31:32 Imaging Results None recorded. Procedure Notes None recorded. Medical Equipment None Reported. Allergies No known drug allergies Medications Name Sig Start Date Stop Date Status Note LastModified by Organization Details LastModified Time cyclobenzapr ine 10 mg tablet TAKE 1 TABLET BY MOUTH THREE TIMES DAILY NEEDED active Not Available Not Available No t Available prednisone 10 mg tablet TAKE 1 TABLET BY MOUTH TWICE DAILY FOR 5 DAYS active Not Available Not Available No t Available atorvastatin 10 mg tablet TAKE 1 TABLET BY MOUTH ONCE DAILY AT NIGHT active Not Available Not Available No t Available azithromycin 250 mg tablet TAKE 2 TABLETS BY MOUTH ON DAY 1, AND THEN TAKE 1 TABLET BY MOUTH ONCE A DAY ON DAY 2 THROUGH DAY 5 active Not Available Not Available No t Available tizanidine 4 mg tablet TAKE 1 TABLET BY MOUTH EVERY 8 HOURS NEEDED FOR MUSCLE SPASM active Not Available Not Available No t Available fluconazole 150 mg tablet TAKE ONE TABLET BY MOUTH EVERY 72 HOURS FOR 2 DOSES active Not Available Not Available Not Available meloxicam 15 mg tablet TAKE 1 TABLET BY MOUTH ONCE DAILY NEEDED active Not Available Not Available No t Available phenazopyrid ine 200 mg tablet TAKE 1 TABLET BY MOUTH THREE TIMES DAILY NEEDED FOR BLADDER SPASMS OR DYSURIA active Not Available Not Available No t Available ondansetron HCl 4 mg tablet TAKE 1 TABLET BY MOUTH THREE TIMES DAILY NEEDED FOR NAUSEA active Not Available Not Available N ot Available prednisone 20 mg tablet TAKE 1 TABLET BY MOUTH TWICE DAILY active Not Available Not Available No t Available Children's Aspirin 81 mg chewable tablet CHEW AND SWALLOW 1 TABLET BY MOUTH ONCE DAILY active Not Available Not Available No t Available sulfamethoxa zole 800 mg-trimethop rim 160 mg tablet TAKE 1 TABLET BY MOUTH EVERY 12 HOURS FOR 5 DAYS active Not Available Not Available N ot Available lamotrigine 25 mg tablet active Not Available Not Available Not Available prednisone 10 mg tablets in a dose pack TAKE BY MOUTH DIRECTED ON INSIDE OF PACKAGE active Not Available Not Available No t Available famotidine 20 mg tablet TAKE 1 TABLET BY MOUTH TWICE DAILY NEEDED FOR HEARTBURN OR INDIGESTION active Not Available Not Available Not Available oxycodone-ac etaminophen 10 mg-325 mg tablet TAKE 1 TABLET BY MOUTH EVERY 6 HOURS NEEDED FOR MODERATE PAIN active Not Available Not Available No t Available baclofen 10 mg tablet TAKE 1 TO 2 TABLETS BY MOUTH AT NIGHT NEEDED FOR MUSCLE SPASM active Not Available Not Available No t Available cephalexin 500 mg capsule TAKE 1 CAPSULE BY MOUTH 4 TIMES DAILY active Not Available Not Available Not Available promethazine 25 mg tablet TAKE 1 TABLET BY MOUTH EVERY 8 HOURS NEEDED FOR NAUSEA OR VOMITING active Not Available Not Available No t Available diclofenac sodium 75 mg tablet,delay ed release TAKE 1 TABLET BY MOUTH TWICE DAILY active Not Available Not Available No t Available zolpidem 5 mg tablet TAKE 1 TABLET BY MOUTH AT NIGHT NEEDED FOR SLEEP active Not Available Not Available No t Available oxycodone-ac etaminophen 7.5 mg-325 mg tablet active Not Available Not Available No t Available zolpidem 10 mg tablet TAKE 1 TABLET BY MOUTH AT NIGHT NEEDED FOR SLEEP active Not Available Not Available No t Available methylpredni solone 4 mg tablets in a dose pack TAKE DIRECTED active Not Available Not Available No t Available topiramate 100 mg tablet active Not Available Not Available Not Available fluticasone propionate 50 mcg/actuatio n nasal spray,suspen rivka USE 2 SPRAY(S) IN EACH NOSTRIL ONCE DAILY DIRECTED active Not Available Not Available Not Available metformin ER 500 mg tablet,exten ded release 24 hr TAKE 1 TABLET BY MOUTH ONCE DAILY WITH BREAKFAST active Not Available Not Available No t Available dextroamphet amine-amphet amine 5 mg tablet active Not Available Not Available Not Available naproxen 500 mg tablet TAKE 1 TABLET BY MOUTH TWICE DAILY WITH MEALS active Not Available Not Available No t Available amoxicillin 875 mg-potassium clavulanate 125 mg tablet TAKE 1 TABLET BY MOUTH TWICE DAILY active Not Available Not Available No t Available oxycodone 5 mg tablet TAKE 1 TABLET BY MOUTH THREE TIMES DAILY NEEDED FOR PAIN active Not Available Not Available No t Available dextroamphet amine-amphet amine ER 5 mg 24hr capsule,exte nd release active Not Available Not Available N ot Available topiramate 50 mg tablet active Not Available Not Available Not Available duloxetine 30 mg capsule,niko yed release TAKE 1 CAPSULE BY MOUTH IN THE MORNING active Not Available Not Available Not Available duloxetine 60 mg capsule,niok yed release TAKE 1 CAPSULE BY MOUTH IN THE MORNING FOR CHRONIC PAIN active Not Available Not Available No t Available pregabalin 75 mg capsule active Not Available Not Available Not Available zolpidem ER 12.5 mg tablet,exten ded release,mult iphase active Not Available Not Available Not Available lisdexamfeta mine 30 mg capsule active Not Available Not Available Not Available oxycodone 10 mg tablet TAKE 1 TABLET BY MOUTH THREE TIMES DAILY NEEDED FOR PAIN active Not Available Not Available No t Available guanfacine ER 2 mg tablet,exten ded release 24 hr active Not Available Not Available Not Available guanfacine ER 1 mg tablet,exten ded release 24 hr active Not Available Not Available Not Available doxepin 6 mg tablet active Not Available Not Available Not Available OneTouch Verio test strips USE TO CHECK GLUCOSE DAILY active Not Available Not Available No t Available OneTouch Verio Flex Meter USE TO CHECK GLUCOSE DAILY active Not Available Not Available No t Available OneTouch Delica Plus Lancet 33 gauge USE TO CHECK GLUCOSE DAILY active Not Available Not Available No t Available Quviviq 50 mg tablet active Not Available Not Available No t Available Vitals Date Recorded Body height Body mass index (BMI) Body weight Heart rate Systolic blood pressure Diastolic blood pressure Provider Name and Address Organization Details Last Updated DateTime 3 160.02 cm 23.6 kg/m2 45554.7 9 g 92 /min 99 mm[Hg] 78 mm[Hg] Tosha Castro [place] - [facility] & [place] 3 11:29:30 Date Recorded Body height Body mass index (BMI) Body weight Body temperature Oxygen saturation Oxygen saturation in Arterial blood by Pulse oximetry Heart rate Systolic blood pressure Diastolic blood pressure Provider Name and Address Organization Details Last Updated DateTime 4 160.02 cm 24.8 kg/m2 88715.9 3 g 99.3 [degF] 99 % 99 % 77 /min 124 mm[Hg] 59 mm[Hg] Ericka Travbahmanbrigitte franco [place] - [facility] & [place] 4 08:34:58 Date Recorded Body height Body mass index (BMI) Body weight Body temperature Oxygen saturation Oxygen saturation in Arterial blood by Pulse oximetry Heart rate Systolic blood pressure Diastolic blood pressure Provider Name and Address Organization Details Last Updated DateTime 4 160.02 cm 21.2 kg/m2 52136.3 7 g 98.4 [degF] 99 % 99 % 80 /min 103 mm[Hg] 70 mm[Hg] Natalia Carrion [place] - [place] [facility] & [place] 4 09:58:56 Date Recorded Body height Body temperature Oxygen saturation Oxygen saturation in Arterial blood by Pulse oximetry Heart rate Systolic blood pressure Diastolic blood pressure Provider Name and Address Organization Details Last Updated DateTime 4 160.02 cm 97.4 [degF] 98 % 98 % 78 /min 98 mm[Hg] 66 mm[Hg] Ericka Elliot [place] - [facility] & [place] 4 10:08:04 Date Recorded Body height Body temperature Oxygen saturation Oxygen saturation in Arterial blood by Pulse oximetry Heart rate Systolic blood pressure Diastolic blood pressure Provider Name and Address Organization Details Last Updated DateTime 5 160.02 cm 97.1 [degF] 100 % 100 % 77 /min 106 mm[Hg] 63 mm[Hg] Minerva Medina jerica [place] - [facility] & [place] 5 08:52:01 Social History None recorded. Functional Status None recorded. Mental Status None recorded. Family History Relationship Description Onset Age of this Age Resolved Age Notes LastModified by Organization Details LastModified Time Mother Chronic obstructive pulmonary disease pt. added direct ly (08/13) [email or web address] Not available 08/13/2022 17:14:54 Mother Osteoporosis pt. added direct ly (08/13) [email or web address] Not available 08/13/2022 17:16:15 Father Disorder of endocrine system pt. added direct ly (08/13) [email or web address] Not available 08/13/2022 17:15:22 Father Myocardial infarction pt. added direct ly (08/13) [email or web address] Not available 08/13/2022 17:15:46 Father Hypertensive disorder pt. added direct ly (08/13) [email or web address] Not available 08/13/2022 17:16:01 Father Hypercholest erolemia pt. added direct ly (01/07) [email or web address] Not available 01/08/2024 13:44:10 Paternal Grandmother Disorder of endocrine system pt. added direct ly (08/13) [email or web address] Not available 08/13/2022 17:15:22 Paternal Aunt Disorder of endocrine system pt. added direct ly (08/13) [email or web address] Not available 08/13/2022 17:15:22 Paternal Uncle Disorder of endocrine system pt. added direct ly (08/13) [email or web address] Not available 08/13/2022 17:15:22 Sister Headache pt. added direct ly (08/13) [email or web address] Not available 08/13/2022 17:15:35 Sister Hypertensive disorder pt. added direct ly (08/13) [email or web address] Not available 08/13/2022 17:16:01 Sister Autoimmune disease pt. added direct ly (01/07) [email or web address] Not available 01/08/2024 13:43:44 Sister Hypercholest erolemia pt. added direct ly (01/07) [email or web address] Not available 01/08/2024 13:44:10 Medical History No medical history recorded. Gynecological HistoryNo gynecological history recorded. Obstetrics History GPAL:G 0 P 0 0 0 0 Past Encounters Encounter ID Performer Location Encounter Start Date Encounter Closed Date Diagnosis/Indication Diagnosis SNOMED-CT Code Diagnosis ICD10 Code Diagnosis Note [id number] DO [facility] [address] [facility] [place] [address] 08/16/2022 11:12:00 08/16/2022 12:02:41 Paresthesia of lower extremity 639027323 R20.2 [id number] Gal Dacosta MD [facility] [address] [place] [address] 08/12/2023 08:23:41 08/12/2023 09:18:42 Acute urinary tract infection 803569422 N39.0 Dysuria 92508036 R30.0 [id number] Ethan Parson MD [facility] [address] [place] [address] 01/13/2024 09:47:55 01/13/2024 10:29:41 Chiari malformation 629012963 Q07.00 Cervico-oc cipital neuralgia 76703451 M54.81 Cervical spondylosis 387 052705 M47.812 - Cervical MRI (04/2022) shows DDD with no focal disc herniation ; low lying cerebellar tonsils likely related to Chiari 1 malformati on; 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 I will discuss at a later visit if pain persists following planned treatments . Myofascial pain 31644994 9 M79.18 - Based on the patient's history and physical exam, it appears her pain is likely associated with myofascial pain, cervical spondylosi s, and chronic migraines. - I will proceed with scheduling a TPI of the bilateral cervico-oc cipital region. This procedure will be fluoroscop y guided.- The patient has completed PT and continues at home exercises/ stretches. - I will follow up 2 weeks post injection to assess efficacy. Chronic mi graine without aura 6489879777 51185 G43.709 - The patient has a migraine headache daily, exceeding 15 migraine headache days per month, most of which last more than 4 hours despite abortive therapy.- Migraine headache has been refractory to conservati ve and pharmacolo gic approaches (prophylac tic and abortive). The patient has taken numerous medication s without significan t benefit or tolerabili ty, such as: diclofenac , pregabalin , and topiramate .- It appears that migraine headache severely limits function and ability to perform ADLs or work, thereby negatively impacting quality of life.- I think the patient is a good candidate for Botox injections for migraine headache so I will proceeding with scheduling . Low back pain 770697222 M54.50 - Once I have addressed the patient's neck pain, I will discuss injections to manage her low back pain.- Lumbar MRI (04/2022) shows multilevel DDD and spondylosi s with mild left neural foraminal narrowing at L5-S1. [id number] Ethan Parson MD [facility] [address] [address] 01/31/2024 08:43:52 01/31/2024 09:10:17 Myofascial pain 607635701 M79.18 [id number] Ethan Parson MD [facility] [address] [facility] [address] [place] [address] 03/20/2024 08:15:46 03/20/2024 09:39:08 Chronic migraine without aura 1500398112 10878 G43.709 Health Concerns Section Related Observation LastModified by Organization Detai ls LastModified Time None Recorded Concern Status LastModified by Organization Details LastModified Time None Recorded Advance Directives Directive None Recorded Payers Insurance Date Sequence Insurance Name Policy Number Policy Burton Covered Member ID Burton Member ID Guarantor Name 06/30/2024 1 [place] [id number] Golden Ochoa [id number] Mable Ochoa Notes Date Note Type Note Provider Name and Address Organization Details Recorded Time 08/12/2023 text/html started with dysuria a couple of weeks ago and took some over date cystex. four or five days ago with pinching and burjing in the back and worse after urinating. no hematuria. no fever or chills that I noted. no unusual vaginal discharge. Ihave had nausea. LMP hysterectomy. Gal Dacosta MD [address], [place], [address], [facility] 08/12/2023 08:51:48 01/13/2024 text/html Ms. Ochoa was referred by Dr. Veras for management of chronic neck and low back pain. The patient was diagnosed with Chiari malformation and mentions that her sister recently due to the same condition. The patient has diabetes, managed with oral medications. She denies history of infection or anti-coagulant use. The patient complains of neck pain that radiates into the base of the skull. She describes the pain as stabbing/sharp along with muscle tightness/spasms, which inhibits daily activities. She states that she is constantly feels that she constantly has to eliminate pressure off her neck. 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 She also complains of migraine headaches that negatively impact daily function. The patient is currently exceeding 15 migraine headaches/month. She has tried/failed diclofenac, pregabalin, and topiramate. The patient also complains of low back pain, but her neck pain is most bothersome. She states that her low back only bothers her when she overdoes it . She has participated in PT and continues at home exercises/stretche s and other conservative measures with minimal benefit. Initial complaint: chronic neck pain Onset: 5+ years Context: worsening over time Character: sharp, aching, throbbing, radiating Location: neck, head, low back Duration: constant with fluctuations Initial Intensity: 6/10 Worse: bending, standing, walking, lifting, carrying, driving, ROM, activity Better: rest Associated symptoms: Denies saddle anaesthesia, denies acute bowel/bladder changes, denies acute power loss. ADLs: The patient's pain interferes with daily chores, exercise, sleep, relationships, and walking. Current Pain Medications: none Prior Pain Medications: pregabalin, oxycodone NSAIDS/OTC: mildly helpful Non-interventional Tx: none Physical Therapy: completed - continues exercises Interventional Tx: spinal injections in the past Surgery: none Imaging/Studies: cervical MRI, lumbar MRI Ethan Parson MD [address], [place], [id number], [facility] & [place] 01/15/2024 11:08:01 OBGyn Episode No OBEpisode recorded.
[2024-07-06 11:48] LABS: Anti-Centromere B Antibodies ND; Anti-DNA (DS) Ab Qn ND; Anti-Jo-1 ND; Antichromatin Antibodies ND; Antiscleroderma-70 Antibodies ND; Lyme Ab IgM CIA ND; Lyme IgG CIA ND; RNP Antibodies ND; Sjogren's Anti-SS-A ND; Sjogren's Anti-SS-B ND
[2024-07-06 12:26] LABS: Basophils % 0.8 % (0.1-2.0); Eosinophils # 0.2 Kmm3 (0.0-0.4); Eosinophils % 3.8 % (0.1-12.0); Hematocrit 40.9 % (37.0-47.0); Hemoglobin 13.1 g/dL (12.2-16.2); Immature Granulocytes # 0.01 10^3uL; Immature Granulocytes % 0.2 %; Lymphocytes # 1.6 K/mm3 (0.7-4.5); Lymphocytes % 34.1 % (10-50); Mean Corpuscular Hemoglobin 29.9 pg (27.0-31.2); Mean Corpuscular Volume 93.4 fl (81-99); Mean Platelet Volume 9.8 fl (7.4-10.4); Monocytes # 0.4 K/mm3 (0.1-1.0); Monocytes % 8.2 % (1.7-9.3); Neutrophils # 2.5 K/mm3 (1.8-7.8); Neutrophils % 52.9 % (37.0-80.0); Nucleated Red Blood Cells # 0 10^3/uL; Nucleated Red Blood Cells % 0 %; Platelet Count 278 K/mm3 (142-424); Red Blood Count 4.38 M/mm3 (4.20-5.40); Red Cell Distribution Width 12.8 % (11.5-17.5); Red Cell Distribution Width-SD 44.4 fL; White Blood Count 4.8 K/mm3 (4.8-10.8)
[2024-07-06 13:00] LABS: Erythrocyte Sedimentation Rate 15 mm/hr (0-30)
[2024-07-06 13:10] LABS: Albumin Level 4.9 g/dl (3.5-5.0); Chloride 110 mmol/L (98-107); Potassium 4.2 mmoL/L (3.5-5.1); Sodium 140 mmol/L (136-145)
[2024-07-06 13:13] LABS: Alanine Aminotransferase 13 U/L (12-78); Albumin/Globulin Ratio 2.1 (1.1-1.8); Alkaline Phosphatase 54 U/L (38-126); Aspartate Amino Transferase 21 U/L (14-36); Bilirubin,Total 0.2 mg/dl (0.2-1.3); Blood Urea Nitrogen 16 mg/dl (7-17); Estimated Glomerular Filt Rate 74 ml/min (>60); GFR (African American) 90 ML/MIN (>60); Globulin 2.3 g/dL (1.3-3.2); Total Protein,Serum 7.2 g/dl (6.3-8.2)
[2024-07-06 13:14] LABS: Calcium 9.4 mg/dl (8.4-10.2); Glucose 111 mg/dl (74-100)
[2024-07-06 13:22] LABS: C-Reactive Protein < 0.3 mg/L (0-4)
[2024-07-06 13:38] LABS: Anion Gap 11.2 mEq/L (5-15); Carbon Dioxide 23 mmol/L (22.0-30.0)
[2024-07-06 13:44] LABS: Thyroid Stimulating Hormone 1.35 uIU/mL (0.465-4.68)
[2024-07-06 14:53] LABS: Vitamin B12 415 pg/mL (239-931)
[2024-07-06 23:23] LABS: RPR W/RFX Titers Nonreactive (Nonreactive)
[2024-07-07 12:38] LABS: Antinuclear Antibodies (ANA) Negative (Negative)
[2024-07-07 13:54] LABS: Lyme Ab CIA Negative (Negative)
== END 2024-07-06 23:59 | disposition home or self-care (01) ==
LOC: LAB 11:28
PROVIDERS: PCP Family Medicine; Visit Provider Specialist
DX: G93.40 Encephalopathy, unspecified (principal); G44.86 Cervicogenic headache; R41.3 Other amnesia
CPT/HCPCS: 36415; 80053; 82607; 82746; 84443; 85025; 85651; 86140; 86592; 86618

== ENCOUNTER 2024-07-27 14:31 | Outpatient (CLI) | payer BC, SELFPAY ==
--- NOTE | 2024-07-27 15:00 | MR_ITS ---
FINAL REPORT TECHNIQUE: Multiplanar and multisequence imaging of the brain was obtained before and after contrast administration. CLINICAL HISTORY: memory loss X 2 YEARS GETTING WORSE FAMILY HX OF Alzheimer's COMPARISON: 02/24/2021 FINDINGS: Brain parenchymal: There is no mass effect or midline shift. There are no areas of abnormal signal intensity.The cerebellum and brainstem are without acute abnormality. Ventricles: The ventricles are symmetric in size and configuration without hydrocephalus. Extra-axial spaces: No extra-axial fluid collections. Note is made of a partially empty sella, which was seen on the prior exam of 2020. Diffusion imaging: No areas of restricted diffusion to suggest acute infarct. Flow voids: Flow voids within the major intracranial vessels are preserved. Soft tissues: Soft tissues are without acute abnormality. Post contrast imaging: No abnormal enhancement. IMPRESSION: No acute intracranial abnormality and no pathologic contrast enhancement. Reviewed, Interpreted and Dictated by Michelle Jarquin MD Transcribed by Nadiya Smith Authenticated and . [facility]
[2024-07-27] MEDS: SODIUM CHLORIDE 0.9% 10ML SYR (RAD ONLY) 10 ML IV (15:59)
[2024-07-27] MEDS: GADOTERIDOL INJ 10ML SYRINGE 10 ML IV (15:59)
== END 2024-07-27 23:59 | disposition home or self-care (01) ==
LOC: RAD 14:32
PROVIDERS: PCP Family Medicine; Visit Provider Specialist
DX: G93.40 Encephalopathy, unspecified (principal); R41.3 Other amnesia
CPT/HCPCS: 70553; A9576